=== PATIENT | male | born 1950 | race Caucasian/White ===

== ENCOUNTER 2022-02-02 08:02 | Inpatient (IN) | payer MEDICAID, MEDICARE ==
[~2022-02-02] VITALS: Ht 167.6 cm; Wt 67.1 kg
[2022-02-02 08:05] VITALS: BP_SYST 139
[2022-02-02] MEDS ORDERED: MORPHINE 4 MG INJ. 4 MG/ML VIAL IVP ONE (08:27)
[2022-02-02] MEDS ORDERED: NITROGLYCERIN 1 INCH (GM) OINT. TP ONE (08:27)
[2022-02-02] MEDS ORDERED: ALLO100T PO (09:17)
[2022-02-02] MEDS ORDERED: INDO-12 PO (09:17)
[2022-02-02] MEDS ORDERED: COLC0.6T67 PO (09:17)
[2022-02-02 09:31] LABS: BASOPHILS # (AUTO) 0.1 K/uL (0.0-0.2); EOSINOPHILS # (AUTO) 0.3 K/uL (0.0-0.4); EOSINOPHILS % (AUTO) 5.7 % (0.0-4.0); LYMPHOCYTES # (AUTO) 1.4 K/uL (1.0-5.5); LYMPHOCYTES % (AUTO) 25.2 % (20.5-51.5); MEAN CORPUSCULAR HEMOGLOBIN 31 pg (27-31); MEAN CORPUSCULAR HGB CONC 33 % (32-36); MEAN CORPUSCULAR VOLUME 93 fL (79.0-98.0); MONOCYTES # (AUTO) 0.2 K/uL (0.0-1.0); MONOCYTES % (AUTO) 2.8 % (1.7-9.3); NEUTROPHILS # (AUTO) 3.6 K/uL (1.8-7.7); NEUTROPHILS % (AUTO) 65.3 % (40.0-70.0); PLATELET COUNT (AUTO) 111 K/uL (130-430); WHITE BLOOD COUNT (AUTO) 5.5 K/uL (4.8-10.8)
[2022-02-02 09:34] LABS: ANION GAP 5 (5-15); CALCIUM 7.5 mg/dL (8.4-11.0); CHLORIDE 112 mmol/L (98-107); CREATININE 1.39 mg/dL (0.55-1.30); GLUCOSE 171 mg/dL (70-99); POTASSIUM 3.7 mmol/L (3.5-5.1); SODIUM SERUM 143 mmol/L (136-145); UREA NITROGEN, BLOOD 57 mg/dL (8-21)
[2022-02-02 09:39] LABS: GFR AFRICAN AMERICAN 65 mL/min (>90)
[2022-02-02 09:42] LABS: RED BLOOD CELL COUNT(AUTO) 1.33 MIL/uL (4.2-6.2)
[2022-02-02 09:43] LABS: HEMATOCRIT 12.4 % (36-54); HEMOGLOBIN 4.1 g/dL (14.0-18.0)
[2022-02-02 09:48] LABS: ALANINE AMINOTRANSFERASE 13 U/L (12-78); ALBUMIN 1.2 g/dL (3.4-4.8); ASPARTATE AMINOTRANSFERASE 19 U/L (10-37); TOTAL BILIRUBIN 0.3 mg/dL (0.0-1.0)
[2022-02-02 11:08] LABS: BILIRUBIN,URINE NEGATIVE (NEGATIVE); BLOOD, URINE 3+ (NEGATIVE); CLARITY/URINE CLOUDY (CLEAR); COLOR,URINE RED (YELLOW); GLUCOSE,URINE NEGATIVE (NEGATIVE); KETONES,URINE TRACE (NEGATIVE); LEUKOCYTE ESTERASE ,URINE TRACE (NEGATIVE); NITRITE, URINE NEGATIVE (NEGATIVE); PH,URINE 6.5 (5.0-8.0); PROTEIN URINE 3+ (NEGATIVE)
[2022-02-02 11:17] LABS: BACTERIA,URINE FEW /HPF (None Seen); RBC,URINE >100 /HPF (0-3)
[2022-02-02] MEDS ORDERED: cefTRIAXone 1 GM IVPB PREMIX 50 ML IV ONE (11:30)
[2022-02-02] MEDS ORDERED: LIP40 GT (12:09)
[2022-02-02] MEDS ORDERED: FAMO-268 GT (12:09)
[2022-02-02] MEDS ORDERED: CEFE2FRO IV (12:09)
[2022-02-02] MEDS ORDERED: FURO-149 GT (12:09)
[2022-02-02] MEDS ORDERED: APIX5TAB GT (12:09)
[2022-02-02] MEDS ORDERED: FLUT50BL INH (12:09)
[2022-02-02] MEDS ORDERED: CARV3.1246 GT (12:09)
[2022-02-02] MEDS ORDERED: MICA100V IV (12:09)
[2022-02-02] MEDS ORDERED: FERR220S15 GT (12:09)
[2022-02-02] MEDS ORDERED: ZOLPIDEM TARTRATE 5 MG TABLET PO PRN (12:15)
[2022-02-02] MEDS ORDERED: LORazepam 2 MG/ML VIAL IVP PRN (12:15)
[2022-02-02] MEDS ORDERED: MUPIROCIN 2% TOPICAL OINTMENT 22 GM NS PRN (12:15)
[2022-02-02] MEDS ORDERED: MAGNESIUM SULFATE 50 ML IV PRN (12:15)
[2022-02-02] MEDS ORDERED: ACETAMINOPHEN 325 MG TABLET PO PRN (12:15)
[2022-02-02] MEDS ORDERED: DOCUSATE SODIUM 100 MG CAPSULE PO PRN (12:15)
[2022-02-02] MEDS ORDERED: ONDANSETRON HCL 4 MG/2 ML VIAL IVP PRN (12:15)
[2022-02-02] MEDS ORDERED: POTASSIUM CHLORIDE 20 MEQ TAB.PRT.SR PO PRN (12:15)
[2022-02-02] MEDS ORDERED: cefTRIAXone 1 GM VIAL ONE (12:32)
[2022-02-02] MEDS ORDERED: cefTRIAXone 1 GM in D5W 50 ML IV ONE (13:00)
[2022-02-02] MEDS ORDERED: AZITHROMYCIN 250 MG TABLET PO ONE (13:30)
[2022-02-02 15:30] VITALS: BP_SYST 144
[2022-02-02] MEDS: D5NS 1,000 ML IV SCH (19:00)
[2022-02-02 22:38] LABS: TOTAL IRON BIND. CAPACITY 86 ug/dL (250-450)
[2022-02-03 00:37] VITALS: BP_SYST 138
[2022-02-03] MEDS: D5NS 1,000 ML IV SCH ×2 (01:30→13:51)
[2022-02-03 07:06] LABS: FOLATE (FOLIC ACID) 7.3 ng/mL (>3.0)
[2022-02-03 07:36] LABS: BASOPHILS % (AUTO) 0.8 % (0.0-2.0); EOSINOPHILS # (AUTO) 0.2 K/uL (0.0-0.4); EOSINOPHILS % (AUTO) 4.7 % (0.0-4.0); HEMATOCRIT 26.9 % (36-54); LYMPHOCYTES # (AUTO) 1.4 K/uL (1.0-5.5); LYMPHOCYTES % (AUTO) 30.3 % (20.5-51.5); MEAN CORPUSCULAR HEMOGLOBIN 30 pg (27-31); MEAN CORPUSCULAR HGB CONC 33 % (32-36); MEAN CORPUSCULAR VOLUME 91 fL (79.0-98.0); MONOCYTES # (AUTO) 0.1 K/uL (0.0-1.0); MONOCYTES % (AUTO) 2.8 % (1.7-9.3); NEUTROPHILS # (AUTO) 2.8 K/uL (1.8-7.7); NEUTROPHILS % (AUTO) 61.4 % (40.0-70.0); PLATELET COUNT (AUTO) 82 K/uL (130-430); RED BLOOD CELL COUNT(AUTO) 2.94 MIL/uL (4.2-6.2); RED CELL DISTRIBUTION WIDTH 16.1 % (9.0-15.0); WHITE BLOOD COUNT (AUTO) 4.5 K/uL (4.8-10.8)
[2022-02-03 08:00] LABS: CALCIUM 7.5 mg/dL (8.4-11.0); CREATININE 1.15 mg/dL (0.55-1.30); POTASSIUM 3.5 mmol/L (3.5-5.1)
[2022-02-03 08:14] LABS: ALBUMIN 1.2 g/dL (3.4-4.8); THYROID STIMULATING HORMONE 3.61 uIu/mL (0.36-3.74); TOTAL BILIRUBIN 0.4 mg/dL (0.0-1.0)
[2022-02-03 08:20] LABS: INR 1.2 (0.80-1.20); PROTHROMBIN TIME 12.7 SECS (9.5-12.5)
[2022-02-03 08:25] VITALS: BP_SYST 135
[2022-02-03 08:47] LABS: TOTAL IRON BIND. CAPACITY 233 ug/dL (250-450)
[2022-02-03] MEDS: AZITHROMYCIN 250 MG TABLET PO SCH (09:01)
[2022-02-03 12:00] VITALS: BP_SYST 137
[2022-02-03] MEDS: cefTRIAXone 1 GM in D5W 50 ML IV SCH (13:49)
[2022-02-03 16:00] VITALS: BP_SYST 136
[2022-02-03 21:13] VITALS: BP_SYST 139
[2022-02-03] MEDS: MORPHINE 2 MG/ML INJ. SYRINGE IVP PRN (21:43)
[2022-02-04 00:19] VITALS: BP_SYST 140
[2022-02-04 08:34] VITALS: BP_SYST 143
[2022-02-04] MEDS: D5NS 1,000 ML IV SCH ×2 (09:43→22:52)
[2022-02-04] MEDS: AZITHROMYCIN 250 MG TABLET PO SCH (09:46)
[2022-02-04] MEDS: MORPHINE 2 MG/ML INJ. SYRINGE IVP PRN (10:02)
[2022-02-04 12:01] LABS: BASOPHILS % (AUTO) 0.9 % (0.0-2.0); EOSINOPHILS # (AUTO) 0.2 K/uL (0.0-0.4); EOSINOPHILS % (AUTO) 6.5 % (0.0-4.0); HEMOGLOBIN 10.3 g/dL (14.0-18.0); LYMPHOCYTES # (AUTO) 1.3 K/uL (1.0-5.5); LYMPHOCYTES % (AUTO) 34.8 % (20.5-51.5); MEAN CORPUSCULAR HEMOGLOBIN 30 pg (27-31); MEAN CORPUSCULAR HGB CONC 32 % (32-36); MEAN CORPUSCULAR VOLUME 93 fL (79.0-98.0); MONOCYTES # (AUTO) 0.1 K/uL (0.0-1.0); NEUTROPHILS % (AUTO) 54.8 % (40.0-70.0); PLATELET COUNT (AUTO) 102 K/uL (130-430); RED BLOOD CELL COUNT(AUTO) 3.44 MIL/uL (4.2-6.2); RED CELL DISTRIBUTION WIDTH 16.7 % (9.0-15.0); WHITE BLOOD COUNT (AUTO) 3.7 K/uL (4.8-10.8)
[2022-02-04 12:09] LABS: CALCIUM 7.5 mg/dL (8.4-11.0); CREATININE 1.16 mg/dL (0.55-1.30); POTASSIUM 3.9 mmol/L (3.5-5.1)
[2022-02-04] MEDS: SOD FERRIC GLUC COMPLEX/SUC 125 MG in NS 100 ML IV SCH (12:12)
[2022-02-04 13:07] VITALS: BP_SYST 146
[2022-02-04] MEDS: cefTRIAXone 1 GM in D5W 50 ML IV SCH (13:32)
[2022-02-04 16:01] VITALS: BP_SYST 145
[2022-02-04 20:00] VITALS: BP_SYST 149
[2022-02-05 01:36] VITALS: BP_SYST 177
[2022-02-05] MEDS: MORPHINE 2 MG/ML INJ. SYRINGE IVP PRN ×3 (05:42→15:37)
[2022-02-05] MEDS: D5NS 1,000 ML IV SCH (05:48)
[2022-02-05 08:30] VITALS: BP_SYST 133
[2022-02-05 08:36] LABS: CREATININE 1.23 mg/dL (0.55-1.30)
[2022-02-05] MEDS: AZITHROMYCIN 250 MG TABLET PO SCH (09:05)
[2022-02-05 09:15] LABS: CALCIUM 6.6 mg/dL (8.4-11.0)
[2022-02-05 09:30] VITALS: BP_SYST 133
[2022-02-05 09:39] LABS: BASOPHILS # (AUTO) 0.1 K/uL (0.0-0.2); BASOPHILS % (AUTO) 1.4 % (0.0-2.0); EOSINOPHILS # (AUTO) 0.1 K/uL (0.0-0.4); EOSINOPHILS % (AUTO) 1.4 % (0.0-4.0); HEMATOCRIT 27.2 % (36-54); HEMOGLOBIN 8.9 g/dL (14.0-18.0); LYMPHOCYTES # (AUTO) 2.1 K/uL (1.0-5.5); LYMPHOCYTES % (AUTO) 45.5 % (20.5-51.5); MEAN CORPUSCULAR HEMOGLOBIN 30 pg (27-31); MEAN CORPUSCULAR HGB CONC 33 % (32-36); MEAN CORPUSCULAR VOLUME 92 fL (79.0-98.0); MONOCYTES # (AUTO) 0.2 K/uL (0.0-1.0); NEUTROPHILS # (AUTO) 2.2 K/uL (1.8-7.7); NEUTROPHILS % (AUTO) 47.7 % (40.0-70.0); PLATELET COUNT (AUTO) 93 K/uL (130-430); RED BLOOD CELL COUNT(AUTO) 2.95 MIL/uL (4.2-6.2); RED CELL DISTRIBUTION WIDTH 16.1 % (9.0-15.0); WHITE BLOOD COUNT (AUTO) 4.6 K/uL (4.8-10.8)
[2022-02-05] MEDS ORDERED: FERROUS GLUCONATE 324 MG TABLET PO ONE (11:00)
[2022-02-05] MEDS ORDERED: APIXABAN 2.5 MG TABLET PO ONE (11:00)
[2022-02-05] MEDS: SOD FERRIC GLUC COMPLEX/SUC 125 MG in NS 100 ML IV SCH (12:16)
[2022-02-05] MEDS: cefTRIAXone 1 GM in D5W 50 ML IV SCH (13:28)
[2022-02-05 16:38] VITALS: BP_SYST 142
[2022-02-05] MEDS ORDERED: APIXABAN 2.5 MG TABLET PO SCH (21:00)
[2022-02-05] MEDS ORDERED: FERROUS GLUCONATE 324 MG TABLET PO SCH (21:00)
== END 2022-02-05 17:24 | DRG 137 ==
LOC: SED 08:02 → STU 11:40
PROVIDERS: ADMIT General Practice; ATTEND General Practice
PROC: 30233N1 Transfusion of Nonautologous Red Blood Cells into Peripheral Vein, Percutaneous Approach (ICD-10-PCS; principal; 2022-02-02)
PROC: 30233N1 Transfusion of Nonautologous Red Blood Cells into Peripheral Vein, Percutaneous Approach (ICD-10-PCS; 2022-02-02)
DX: J69.0 Pneumonitis due to inhalation of food and vomit (principal); N17.0 Acute kidney failure with tubular necrosis; I50.43 Acute on chronic combined systolic (congestive) and diastolic (congestive) heart failure; E43 Unspecified severe protein-calorie malnutrition; J96.11 Chronic respiratory failure with hypoxia; I21.A1 Myocardial infarction type 2; Z93.0 Tracheostomy status; Z99.11 Dependence on respirator [ventilator] status; I11.0 Hypertensive heart disease with heart failure; N39.0 Urinary tract infection, site not specified; K92.2 Gastrointestinal hemorrhage, unspecified; M32.9 Systemic lupus erythematosus, unspecified; D62 Acute posthemorrhagic anemia; I48.0 Paroxysmal atrial fibrillation; E11.9 Type 2 diabetes mellitus without complications; Z20.822 Contact with and (suspected) exposure to COVID-19; R13.10 Dysphagia, unspecified; I20.9 Angina pectoris, unspecified; E83.51 Hypocalcemia; E78.5 Hyperlipidemia, unspecified; I25.5 Ischemic cardiomyopathy; I69.354 Hemiplegia and hemiparesis following cerebral infarction affecting left non-dominant side; Z74.01 Bed confinement status; Z79.01 Long term (current) use of anticoagulants; Z79.899 Other long term (current) drug therapy
CPT/HCPCS: 36415; 36430; 71045; 76770; 80048; 80053; 80061; 81000; 82272; 82607; 82728; 82746; 83540; 83550; 83735; 83880; 84443; 84484; 85025; 85610-TC; 86886; 86900; 86901; 86920; 87040; 87081; 87086; 93005; 93306; 94760; 96365; 96375; 99291; G0378; J0696; J2270; J2916; J7060; P9021; Q0144

== ENCOUNTER 2022-02-05 22:56 | Inpatient (IN) | payer MEDICAID, MEDICARE ==
[~2022-02-05] VITALS: Ht 172.7 cm; Wt 76.7 kg
[2022-02-05 22:56] VITALS: BP_SYST 134
[~2022-02-05 22:56] MED LIST: APIX5TAB GT; CARV3.1246 GT; CEFE2FRO IV; FAMO-268 GT; FERR220S15 GT; FLUT50BL INH; FURO-149 GT; LIP40 GT; MICA100V IV
--- NOTE | 2022-02-05 23:13 | NUR ---
Placed in room 03 . Placed on region manager, blood pressure machine and pulse oximeter. To gown for exam. Side rails up. Report given to SIMON STOREY
--- NOTE | 2022-02-05 23:22 | NUR ---
I HAVEN 'T RECIEVED REPORT BUT I READ THE TRIAGE REPORT, PT IS HERE FOR CP. I WILL GO SEE THE PT NOW
[2022-02-06 01:25] LABS: HEMOGLOBIN 9.5 g/dL (14.0-18.0); MEAN CORPUSCULAR VOLUME 91 fL (79.0-98.0)
[2022-02-06 01:29] LABS: EOSINOPHILS # (AUTO) 0.3 K/uL (0.0-0.4); EOSINOPHILS % (AUTO) 6.5 % (0.0-4.0); HEMATOCRIT 28.7 % (36-54); LYMPHOCYTES # (AUTO) 1.6 K/uL (1.0-5.5); LYMPHOCYTES % (AUTO) 36.7 % (20.5-51.5); MEAN CORPUSCULAR HEMOGLOBIN 30 pg (27-31); MEAN CORPUSCULAR HGB CONC 33 % (32-36); MONOCYTES # (AUTO) 0.3 K/uL (0.0-1.0); NEUTROPHILS # (AUTO) 2.1 K/uL (1.8-7.7); NEUTROPHILS % (AUTO) 49.8 % (40.0-70.0); PLATELET COUNT (AUTO) 115 K/uL (130-430); RED BLOOD CELL COUNT(AUTO) 3.15 MIL/uL (4.2-6.2); RED CELL DISTRIBUTION WIDTH 16.3 % (9.0-15.0); WHITE BLOOD COUNT (AUTO) 4.3 K/uL (4.8-10.8)
--- NOTE | 2022-02-06 01:30 | NUR ---
I STARTED A IV LAC 18G. AND LAB DRAWN BLD FROM THE RIGHT ARM. PT SUCTIONED AND SLIGHT BLD TINGED SPUTUM NOTED MODERATE AMOUNT. TRACH DRSG CHANGED D/T BLD SPUTUM SOAKING DRSG. NO OTHER RESP ISSUES AND SATURATIONS APPROP.. CARE RESUMED
[2022-02-06 01:52] LABS: CALCIUM 7.8 mg/dL (8.4-11.0); CREATININE 1.6 mg/dL (0.55-1.30); POTASSIUM 4.5 mmol/L (3.5-5.1); TOTAL BILIRUBIN 0.1 mg/dL (0.0-1.0)
[2022-02-06 01:53] LABS: ALBUMIN 1.1 g/dL (3.4-4.8)
--- NOTE | 2022-02-06 01:57 | NUR ---
CRITICAL TROPONIN= 181.4, DR. HAWKINS AWARE ADN NOTIFIED
[2022-02-06] MEDS ORDERED: ASPIRIN 325 MG TABLET PO ONE (02:15)
[2022-02-06] MEDS ORDERED: FUROSEMIDE 40 MG/4 ML VIAL IVP ONE (02:15)
[2022-02-06] MEDS ORDERED: NITROGLYCERIN 1 INCH (GM) OINT. TP ONE (02:15)
--- NOTE | 2022-02-06 02:27 | NUR ---
DEL RIO CATH INSERTED AND UA OBTAINED AND SENT TO LAB
[2022-02-06 03:37] LABS: BILIRUBIN,URINE NEGATIVE (NEGATIVE); BLOOD, URINE 3+ (NEGATIVE); CLARITY/URINE CLOUDY (CLEAR); COLOR,URINE ORANGE (YELLOW); GLUCOSE,URINE NEGATIVE (NEGATIVE); KETONES,URINE NEGATIVE (NEGATIVE); LEUKOCYTE ESTERASE ,URINE NEGATIVE (NEGATIVE); NITRITE, URINE NEGATIVE (NEGATIVE); PROTEIN URINE 3+ (NEGATIVE)
[2022-02-06 04:01] LABS: BACTERIA,URINE FEW /HPF (None Seen); RBC,URINE 20-50 /HPF (0-3)
[2022-02-06 04:02] LABS: COARSE GRANULAR CASTS,URINE 0-10 /LPF (None Seen)
--- NOTE | 2022-02-06 04:06 | NUR ---
CRITICAL TROPONIN = [address] REPEAT E[address] DONE NOW. DR. HAWKINS AWARE OF CRITICAL VALUE
[2022-02-06] MEDS ORDERED: HEPARIN 25,000 UNITS/D5W 250ML 250 ML IV ONE (04:15)
[2022-02-06] MEDS ORDERED: HEPARIN SODIUM,PORCINE 5,000 UNITS/ML VIAL IVP ONE (04:15)
--- NOTE | 2022-02-06 04:35 | NUR ---
ER DOC ORDERED HEPARIN BUT HE ADVISED ME TO HOLD OFF ON GIVING PT ANY HEPARIN UNTIL HE DISCUSSES WITH ADMITTING DRTrevon UPON HEPARIN ADMINISTRATION. CARE RESUMED
[2022-02-06] MEDS ORDERED: cefTRIAXone 1 GM IVPB PREMIX 50 ML IV SCH (06:30)
[2022-02-06] MEDS ORDERED: LevALBUTEROL HCL 1.25 MG/0.5 ML *CONC.* VIAL.NEB (XOPENEX CONC.) INH ONE ×2 (06:30→06:49)
[2022-02-06] MEDS ORDERED: ALBUTEROL MDI INHALATION 8 GM INH INH PRN (06:45)
[2022-02-06] MEDS ORDERED: ACETAMINOPHEN 650 MG/20.3 ML UDC GT PRN (06:45)
--- NOTE | 2022-02-06 07:00 | NUR ---
PT AWAKE ALERT NON VERBAL. PT HAS A TRACH WITH O2 AND HUMIDIFIER RUNNING AT 5 LITERS. PT UNABLE TO MOVE LEFT SIDE OF BODY. PT IS ABLE TO MOVE RIGHT SIDE ARM AND LEG. PT IS BEDBOUND. 18 GAUGE IV NOTED ON LEFT AC SKIN INTACT NO INFILTRATION. GTUBE PRESENT, DEL RIO INTACT NO SIGNS OF INFECTION NOTED. PT CONNECTED TO SALES DEPARTMENT SUPERVISOR WITH AN ELEVATED HR OF 112. BP ELEVATED 166/93. O2 SAT. 96% TEMP. 104.2 BED LOWEST POSITION SAFETY CHECKS DONE. RAILS UP.
--- NOTE | 2022-02-06 07:35 | NUR ---
Admit bed requested Patient will be admitted to care of . Admitted to Tele unit. Diagnosis Pneumonia and CHF Inpatient (Yes or No) Yes Observation (Yes or No) No Orientation concerns or request close to nursing station (Yes or No) No Covid Status Neg On vent or bipap No Isolation requirements No Needs a sitter No From Home (Yes or if No enter name of facility) [place] Requires Dialysis (Yes or No) No Med Rec Completed (Yes of No) Yes
--- NOTE | 2022-02-06 07:41 | NUR ---
Covid swab done and sent to lab.
[2022-02-06] MEDS: CARVEDILOL 6.25 MG TABLET (COREG) GT SCH ×2 (09:00→22:01)
[2022-02-06] MEDS: FERROUS SULFATE 300 MG/5 ML UDC GT SCH (09:00)
[2022-02-06] MEDS ORDERED: GLUCOSE (DEXTROSE) ORAL GEL -Adults PO PRN (09:00)
[2022-02-06] MEDS ORDERED: DEXTROSE 50%-WATER 50 ML DISP.SYRIN IVP PRN (09:00)
[2022-02-06] MEDS ORDERED: FUROSEMIDE 20 MG TABLET GT SCH (09:00)
[2022-02-06] MEDS ORDERED: D5W 1,000 ML IV PRN (09:00)
[2022-02-06] MEDS ORDERED: FAMOTIDINE 20 MG TABLET GT ONE (09:00)
--- NOTE | 2022-02-06 09:37 | NUR ---
Paged Dr. Molina about pt's BP running at 199/88 and temp being at 104.1. Waiting for call back.,
--- NOTE | 2022-02-06 09:41 | NUR ---
Dr. Sorto at bedside examining pt.
[2022-02-06] MEDS ORDERED: hydrALAZINE HCL 20 MG/ML VIAL IVP PRN (10:00)
--- NOTE | 2022-02-06 10:01 | NUR ---
Dr. Molina called back and gave orders. Orders have been placed.
[2022-02-06 10:03] VITALS: BP_SYST 166
--- NOTE | 2022-02-06 10:08 | NUR ---
RT NOTES 1008 Pt on trach collar CA 5L/28% FIO2. Pt saturating 96%. will continue to monitor pt. Changed Inner Cannula.
[2022-02-06] MEDS ORDERED: hydrALAZINE HCL 20 MG/ML VIAL ONE (10:11)
--- NOTE | 2022-02-06 10:16 | NUR ---
Cooling measures initaited. Tylenol provided to pt 650mg and Hydralazine 10mg IV push given as well. Dr. Molina made aware.
[2022-02-06] MEDS: CEFEPIME 2 GM in D5W 100 ML IV SCH ×2 (10:53→23:14)
--- NOTE | 2022-02-06 11:04 | NUR ---
VS BP 146/80 TEMP 100.1 PT IN BED RESTING WITH NO SIGNS OF DISTRESS
[2022-02-06] MEDS: APIXABAN 2.5 MG TABLET GT SCH ×2 (11:09→21:58)
[2022-02-06] MEDS ORDERED: AZITHROMYCIN 500 MG in NS 250 ML IV ONE (12:00)
[2022-02-06] MEDS ORDERED: ALBUTEROL MDI INHALATION 8 GM INH INH SCH (12:00)
[2022-02-06] MEDS: INSULIN REGULAR, HUMAN 100 UNITS/ML, 10 ML VIAL (humuLIN R) SUBCUT SCH ×2 (12:00→17:08)
--- NOTE | 2022-02-06 13:10 | NUR ---
Patient will be admitted to care of Dr. Molina. Admitted to Tele unit. Will go to room 112B. Belongings list completed. Complete and up to date summary report printed. SBAR report to be given at bedside with opportunity for questions.
--- NOTE | 2022-02-06 13:45 | NUR ---
ADMISSION NOTE Received report from Veronica MONTES form ER. Received pt AAOx3, non-verbal, able to gesture. Pt placed on telemetry with pulse ox. Pt with no s/s resp distress, no s/s pain or discomfort, pt afebrile. RT called and placed pt on O2 5L via mask to trach with closed suction set-up. Sandra draining to gravity with yellow urine. Pt repositioned in bed with pillow support and heels off-loaded for skin care. Both hands elevated on pillows due to edema. Pt placed in clean gown, given quick wash up to chest and face area. HOB elevated for aspiration precautions. Glucerna 1.5 bottle hung and now infusing well at ordered rate of 50 ml/hr with no residual noted. Zithromax IVPB infusing well to LAC at ordered rate from ER. Side rails up x3, bed alarm on and room across from nursing station for safety. Call light within reach.
[2022-02-06 13:50] VITALS: BP_SYST 143
[2022-02-06] MEDS: ALBUTEROL SULFATE 0.083% 2.5 MG/3 ML VIAL.NEB INH SCH ×2 (14:19→20:33)
--- NOTE | 2022-02-06 15:02 | NUR ---
CONSULTATION: REASON FOR CONSULT: PNEUMONIA CONSULTING PHYSICIAN: CAL ORDERED BY: SHARMIN STOVALL IS ALREADY IN THE HOSPITAL AND IS AWARE OF THE CONSULT [phone]
[2022-02-06] MEDS: MICAFUNGIN SODIUM 100 MG in NS 100 ML IV SCH (15:11)
--- NOTE | 2022-02-06 15:33 | NUR ---
CONSULTATION PAGED REASON FOR CONSULTATION:RESP FAILURE WAS CONSULT CALED?Y PERSON WHO WAS NOTIFIED:AURE CONSULTING PHYSICIAN:LEYLA MCCARTHY DIRECTOR OF COLLECTIONS SPECIALTY:PULMONARY DIRECTOR OF COLLECTIONS PHONE NUMBER:[phone] REQUESTING PHYSICIAN:JUAN ANTONIO RAPHAEL
[2022-02-06] MEDS: methylPREDNISolone SOD SUCC/PF 62.5 MG/ML VIAL IVP SCH ×2 (17:04→23:14)
[2022-02-06 17:05] VITALS: BP_SYST 142
[2022-02-06] MEDS: 0.45% NACL 1,000 ML IV SCH (17:06)
--- NOTE | 2022-02-06 19:15 | NUR ---
CLOSING NOTE Pt in bed visiting with his family, no s/s resp distress, no c/o pain or discomfort. Pt's and family at bedside and updated on pt's condition and medications. Aspiration, skin and safety precautions remain in place. Endorsed to pelts skinner nurse. Call light within reach.
[2022-02-06 20:00] VITALS: BP_SYST 117
[2022-02-06] MEDS: ATORVASTATIN 20 MG TABLET GT SCH (21:56)
[2022-02-06] MEDS: FLUTICASONE PROPIONATE 50 mCg/SPRAY 16 GM NS SCH (22:00)
--- NOTE | 2022-02-07 00:09 | NUR ---
CRITICAL LAB: tech from Laboratory called with critical lab value of a troponin value of 221. Medical record number and patient name verified. Read back of values done. Dr. Hilliard was paged waiting on a call back. No orders given at this time.
[2022-02-07 00:19] VITALS: BP_SYST 155
[2022-02-07] MEDS: ALBUTEROL SULFATE 0.083% 2.5 MG/3 ML VIAL.NEB INH SCH ×4 (01:47→20:23)
[2022-02-07] MEDS: INSULIN REGULAR, HUMAN 100 UNITS/ML, 10 ML VIAL (humuLIN R) SUBCUT SCH ×4 (02:12→17:10)
[2022-02-07] MEDS: 0.45% NACL 1,000 ML IV SCH ×2 (05:02→15:56)
[2022-02-07 07:00] LABS: BASOPHILS % (AUTO) 0.3 % (0.0-2.0); HEMATOCRIT 26.5 % (36-54); HEMOGLOBIN 8.8 g/dL (14.0-18.0); LYMPHOCYTES # (AUTO) 1.5 K/uL (1.0-5.5); LYMPHOCYTES % (AUTO) 33.2 % (20.5-51.5); MEAN CORPUSCULAR HEMOGLOBIN 30 pg (27-31); MEAN CORPUSCULAR HGB CONC 33 % (32-36); MEAN CORPUSCULAR VOLUME 91 fL (79.0-98.0); MONOCYTES # (AUTO) 0.1 K/uL (0.0-1.0); NEUTROPHILS # (AUTO) 2.8 K/uL (1.8-7.7); NEUTROPHILS % (AUTO) 63.5 % (40.0-70.0); PLATELET COUNT (AUTO) 126 K/uL (130-430); RED CELL DISTRIBUTION WIDTH 16.6 % (9.0-15.0); WHITE BLOOD COUNT (AUTO) 4.5 K/uL (4.8-10.8)
--- NOTE | 2022-02-07 07:52 | NUR ---
0745 CHANGED COOL AEROSOL WATER BOTTLE. PT TOLERATED. Addendum: 02/07/22 at 0752 by Dorcas Montoya RT Amended: Links added.
[2022-02-07 08:01] VITALS: BP_SYST 148
[2022-02-07 08:35] LABS: CALCIUM 7.1 mg/dL (8.4-11.0); CREATININE 1.74 mg/dL (0.55-1.30)
[2022-02-07] MEDS: FERROUS SULFATE 300 MG/5 ML UDC GT SCH (08:55)
[2022-02-07] MEDS: AZITHROMYCIN 250 MG TABLET PO SCH (08:56)
[2022-02-07] MEDS: FUROSEMIDE 20 MG/2 ML VIAL IVP SCH ×2 (08:56→22:10)
[2022-02-07] MEDS: FAMOTIDINE 20 MG TABLET GT SCH (08:56)
[2022-02-07] MEDS: CARVEDILOL 6.25 MG TABLET (COREG) GT SCH ×2 (08:58→21:55)
[2022-02-07] MEDS: APIXABAN 2.5 MG TABLET GT SCH ×2 (09:02→21:55)
[2022-02-07] MEDS: methylPREDNISolone SOD SUCC/PF 62.5 MG/ML VIAL IVP SCH ×3 (09:03→23:38)
[2022-02-07] MEDS: CEFEPIME 2 GM in D5W 100 ML IV SCH ×2 (11:47→22:20)
[2022-02-07] MEDS: MICAFUNGIN SODIUM 100 MG in NS 100 ML IV SCH (12:59)
--- NOTE | 2022-02-07 14:28 | NUR ---
Dietitian Recommendations Continue Glucerna 1.5 @ 50 mL/hr, free water flush per Nolberto YANCEY. Provides (w/ Nolberto): 1960 kcals/day and 104 g protein/day. Meets: 86% of lower kcal needs, 91% of upper protein needs. Please refer to nutrition assessment for details. Signed: 02/07/22 at 1429 by Yessenia OSHEA <Co-Signature Required> Co-Signed: 02/07/22 at [address] Addendum: 02/07/22 at 1429 by Yessenia OSHEA Amended: Links added.
[2022-02-07] MEDS: ACETAMINOPHEN 650 MG/20.3 ML UDC GT PRN ×2 (15:44→21:51)
--- NOTE | 2022-02-07 16:06 | NUR ---
INFORMED RN ASHWINI THAT THE PATIENT IS OFF THE LEADS
--- NOTE | 2022-02-07 17:50 | NUR ---
1730 TRACH CARE TOPICALLY DONE DUE TO FRESH TRACH, PT TOLERATED WELL. Addendum: 02/07/22 at 1750 by Dorcas Montoya RT Amended: Links added.
--- NOTE | 2022-02-07 19:40 | NUR ---
OPENING NOTE PT IS SEMI FOWLERS IN BED WITH FAMILY BEDSIDE. NO APPARENT DISTRESS NOTED AT THIS TIME. PT IS ON 5 L MASK OVER TRACH SATING 99%. DEL RIO IS DRAINING TO GRAVITY. IV FLUIDS AND TUBE FEEDING RUNNING ORDERED. BED IS IN LOWEST POSITION WITH FALL AND SAFETY PRECAUTIONS IN PLACE. CALL LIGHT IS WITHIN REACH
[2022-02-07 20:00] VITALS: BP_SYST 138
[2022-02-07] MEDS: ATORVASTATIN 20 MG TABLET GT SCH (21:51)
[2022-02-07] MEDS: FLUTICASONE PROPIONATE 50 mCg/SPRAY 16 GM NS SCH (21:56)
--- NOTE | 2022-02-07 22:00 | NUR ---
PT CONDITION LEFT ARM EDEMATOUS WITH 2+ PITTING, FLUIDS RUNNING IN L AC 18 G. RIGHT UPPER ARM IS EDEMATOUS WITH 2+ PITTING EDEMA, R WRIST IV HAS GOOD BLOOD RETURN. MOVING THE IV FLUIDS TO RIGHT WRIST IV SKIN TEAR NOTED ON LEFT AC ON OUTER PERIMETER OF TRANSPARENT DRESSING OF LAC IV
[2022-02-08] VITALS (12 sets, daily range): BP systolic 130–150
[2022-02-08] MEDS: INSULIN REGULAR, HUMAN 100 UNITS/ML, 10 ML VIAL (humuLIN R) SUBCUT SCH ×4 (00:43→17:50)
[2022-02-08] MEDS ORDERED: FUROSEMIDE 20 MG/2 ML VIAL IVP ONE (01:45)
--- NOTE | 2022-02-08 01:53 | NUR ---
DR ACE CALLED CALLED AND SPOKE WITH DR ACE ABOUT PTS CHANGE IN CONDITION. PT BECAME RESTLESS WITH AN AUDIBLE WHEEZE. DR ORDERED A ONE TIME ORDER OF 20 MG IVP OF LASIX, AND TO DECREASE IVF TO 40 ML/HR AND TO DECREASE TUBE FEEDING TRO 25 ML/ HR
[2022-02-08] MEDS: ALBUTEROL SULFATE 0.083% 2.5 MG/3 ML VIAL.NEB INH SCH ×4 (02:05→19:58)
--- NOTE | 2022-02-08 04:15 | NUR ---
PT CONDITION PT BECAME AGITATED AND HAD AN AUDIBLE WHEEZE. CALLED RT TO ADMINISTER A BREATHING TX AND SUCTION. PT COMMIONICATED HE WAS DIRTY AND NEEDED TO BE CLEANED, MEMBERSHIP DIRECTOR CAME IN TO ASSIST. AFTER CLEANING AND REPOSITIONING PTS AUDIBLE WHEEZE DIMINISHED. LUNG SOUNDS STILL HAVE BILAT WHEEZE WILL ENDORSE TO DAY SHIFT THE NEED FOR MEDICATION FOR RESTLESSNESS AND POSSIBLE TRANSFER TO ICU.
[2022-02-08] MEDS: ALBUTEROL SULFATE 0.083% 2.5 MG/3 ML VIAL.NEB INH PRN ×2 (04:49→11:37)
--- NOTE | 2022-02-08 06:57 | NUR ---
CLOSING NOTE PT IS SEMIFOWLERS WITH EYES CLOSED, PT IS STILL AGITATED AND FLAILING HIS RIGHT ARM UP. PTS LUNG SOUNDS STILL HAVE A WHEEZE WITH A RR OF 30. PAGED RT AT 0645 TO SUCTION PT. BED IS IN LOWEST POSITION WITH FALL AND SAFETY PRECAUTIONS IN PLACE. CALL LIGHT IS WITHIN REACH. IV FLUIDS AND TUBE FEEDING RUNNING ORDERED
[2022-02-08] MEDS: methylPREDNISolone SOD SUCC/PF 62.5 MG/ML VIAL IVP SCH ×2 (08:45→17:46)
[2022-02-08] MEDS: FAMOTIDINE 20 MG TABLET GT SCH (08:46)
[2022-02-08] MEDS: APIXABAN 2.5 MG TABLET GT SCH ×2 (08:46→20:22)
[2022-02-08] MEDS: AZITHROMYCIN 250 MG TABLET PO SCH (08:47)
[2022-02-08] MEDS: FUROSEMIDE 20 MG/2 ML VIAL IVP SCH ×2 (08:47→21:00)
[2022-02-08] MEDS: FERROUS SULFATE 300 MG/5 ML UDC GT SCH (08:47)
[2022-02-08] MEDS: CARVEDILOL 6.25 MG TABLET (COREG) GT SCH ×2 (09:00→20:20)
[2022-02-08] MEDS ORDERED: METHYLPREDNISOLONE SOD SUCC 40 MG/ML VIAL IVP ONE (11:00)
[2022-02-08] MEDS: CEFEPIME 2 GM in D5W 100 ML IV SCH ×2 (11:16→23:59)
--- NOTE | 2022-02-08 11:25 | NUR ---
Pt Oxygenation dropped down to 92%. Sweating profusely.Pt is breathing fast. Pt is using accessory muscles while breathing. When asked why he was breathing so hard, pt shrugged his shoulders. made aware of change in pt's condition. New orders entered. STAT ABG and Chest xray. Pt is on vent. ABGs to be repeated an hour after vent is placed on the patient. Report new results to Dr. Alicea. Will continue to monitor
--- NOTE | 2022-02-08 11:28 | NUR ---
CONSULT SURGERY BLEEDING TRACHEOSTOMY DR BARROSO,TUNDE [phone] DR BARROSO IS AWARE OF CONSULT
[2022-02-08] MEDS: MICAFUNGIN SODIUM 100 MG in NS 100 ML IV SCH (13:00)
[2022-02-08 13:30] LABS: BASOPHILS % (AUTO) 0.1 % (0.0-2.0); HEMATOCRIT 25.7 % (36-54); HEMOGLOBIN 8.4 g/dL (14.0-18.0); LYMPHOCYTES # (AUTO) 1.1 K/uL (1.0-5.5); LYMPHOCYTES % (AUTO) 19.4 % (20.5-51.5); MEAN CORPUSCULAR HEMOGLOBIN 30 pg (27-31); MEAN CORPUSCULAR HGB CONC 33 % (32-36); MEAN CORPUSCULAR VOLUME 92 fL (79.0-98.0); MONOCYTES # (AUTO) 0.2 K/uL (0.0-1.0); MONOCYTES % (AUTO) 4.4 % (1.7-9.3); NEUTROPHILS # (AUTO) 4.2 K/uL (1.8-7.7); NEUTROPHILS % (AUTO) 76.1 % (40.0-70.0); PLATELET COUNT (AUTO) 195 K/uL (130-430); WHITE BLOOD COUNT (AUTO) 5.6 K/uL (4.8-10.8)
[2022-02-08 13:42] LABS: ALBUMIN 1.2 g/dL (3.4-4.8); CALCIUM 7.3 mg/dL (8.4-11.0); CREATININE 2.28 mg/dL (0.55-1.30); TOTAL BILIRUBIN 0.6 mg/dL (0.0-1.0)
[2022-02-08] MEDS ORDERED: SODIUM BICARBONATE 8.4% JECT 50 MEQ/50 ML SYRINGE IVP ONE (14:45)
[2022-02-08] MEDS: LORazepam 2 MG/ML VIAL IVP PRN (15:15)
--- NOTE | 2022-02-08 15:20 | NUR ---
Pt is struggling to breath while on the ventilator. Saturation is 92% with HOB at 30. Pt is sweating profusely. MD notified. NEw orders to administer 1 amp of bicarb and ativan 1 mg q6prn. Will transfer the patient to ICU as soon as a bed is available. Will continue to monitor
--- NOTE | 2022-02-08 15:30 | NUR ---
RT NOTE: 1530 Patient situated in ICU 3, tranported with vent. Trach is patent and secure during transport. No issues. SpO2 is at 97%, HR 88, and RR 40. Patient is complaining of pain. INTEGRATION ENGINEER at the bedside at this time. Will continue to monitor pt. Addendum: 02/08/22 at 1549 by Slime Greene RT Amended: Links added.
--- NOTE | 2022-02-08 15:40 | NUR ---
Patient received Received patient from Tele floor and placed in bed 3. Patient is resting in bed with tachypneic breathing. RT is at bedside assessing and assisting with patient transfer. Report given to Juan Diego at bedside from Telemetry nurse. All care has been assumed by the ICU.
[2022-02-08] MEDS: 0.45% NACL 1,000 ML IV SCH (17:45)
[2022-02-08 19:04] LABS: INR 1.3 (0.80-1.20); PROTHROMBIN TIME 12.9 SECS (9.5-12.5)
--- NOTE | 2022-02-08 19:30 | NUR ---
Andre Espinosa RN, received report from day RN. Assuming care now.
[2022-02-08] MEDS: ATORVASTATIN 20 MG TABLET GT SCH (20:18)
[2022-02-08] MEDS: FLUTICASONE PROPIONATE 50 mCg/SPRAY 16 GM NS SCH (21:00)
[2022-02-09] VITALS (36 sets, daily range): BP systolic 108–157
[2022-02-09] MEDS: methylPREDNISolone SOD SUCC/PF 62.5 MG/ML VIAL IVP SCH ×4 (00:46→18:47)
[2022-02-09] MEDS: INSULIN REGULAR, HUMAN 100 UNITS/ML, 10 ML VIAL (humuLIN R) SUBCUT SCH ×4 (00:52→18:49)
[2022-02-09] MEDS: ALBUTEROL SULFATE 0.083% 2.5 MG/3 ML VIAL.NEB INH SCH ×4 (01:08→19:30)
[2022-02-09] MEDS: ACETAMINOPHEN 650 MG/20.3 ML UDC GT PRN (01:27)
[2022-02-09] MEDS: LORazepam 2 MG/ML VIAL IVP PRN ×4 (03:58→22:05)
--- NOTE | 2022-02-09 03:58 | NUR ---
Patient anxious visibly, unable to make needs known at times and gesturing to get out of bed. Waving arm around in bed aimlessly. Ativan given PRN IV. Will continue to monitor.
[2022-02-09 06:40] LABS: ALBUMIN 0.9 g/dL (3.4-4.8); CALCIUM 7.1 mg/dL (8.4-11.0); CREATININE 2.46 mg/dL (0.55-1.30); POTASSIUM 3.6 mmol/L (3.5-5.1); TOTAL BILIRUBIN 0.6 mg/dL (0.0-1.0)
[2022-02-09 07:38] LABS: BASOPHILS % (AUTO) 0.1 % (0.0-2.0); LYMPHOCYTES # (AUTO) 0.7 K/uL (1.0-5.5); LYMPHOCYTES % (AUTO) 17.8 % (20.5-51.5); MEAN CORPUSCULAR HEMOGLOBIN 31 pg (27-31); MEAN CORPUSCULAR HGB CONC 33 % (32-36); MEAN CORPUSCULAR VOLUME 93 fL (79.0-98.0); MONOCYTES # (AUTO) 0.2 K/uL (0.0-1.0); MONOCYTES % (AUTO) 6.4 % (1.7-9.3); NEUTROPHILS # (AUTO) 2.9 K/uL (1.8-7.7); NEUTROPHILS % (AUTO) 75.7 % (40.0-70.0); PLATELET COUNT (AUTO) 149 K/uL (130-430); RED BLOOD CELL COUNT(AUTO) 2.17 MIL/uL (4.2-6.2); RED CELL DISTRIBUTION WIDTH 16.5 % (9.0-15.0); WHITE BLOOD COUNT (AUTO) 3.9 K/uL (4.8-10.8)
[2022-02-09] MEDS: CARVEDILOL 6.25 MG TABLET (COREG) GT SCH ×2 (08:19→20:55)
[2022-02-09] MEDS: AZITHROMYCIN 250 MG TABLET PO SCH (08:19)
[2022-02-09] MEDS: FAMOTIDINE 20 MG TABLET GT SCH (08:19)
[2022-02-09] MEDS: FERROUS SULFATE 300 MG/5 ML UDC GT SCH (08:20)
[2022-02-09] MEDS: FUROSEMIDE 20 MG/2 ML VIAL IVP SCH (08:20)
[2022-02-09] MEDS: APIXABAN 2.5 MG TABLET GT SCH (08:22)
[2022-02-09 09:27] LABS: HEMATOCRIT 20.1 % (36-54); HEMOGLOBIN 6.7 g/dL (14.0-18.0)
[2022-02-09] MEDS: CEFEPIME 2 GM in D5W 100 ML IV SCH ×2 (12:50→20:55)
--- NOTE | 2022-02-09 15:25 | NUR ---
Nutrition F/U Admitting Diagnosis PNA, CHF Reviewed Pertinent Medical/Surgical Hx Medical Record RN Medical History Comment: Per EMR review, PMH includes HLD, HTN, DM, chronic respiratory failure, CVA, encephalopathy, previous AK, CHF, s/p trach and PEG. SARS-CoV-2 Ag (Rapid) Negative 02/06. Subjective Information Per EMR review, pt on mechanical vent. Abdomen is soft, non-distended w/ active BS. Kilo score 12, Left AC skin tear noted, 3+ pitting edema noted on L arm and 2+ pitting edema noted on R arm. Per ICU rounds, pt transferred to ICU yesterday d/t difficulty ventilating. Per RN, pts MD would like to increase GT rate. DI called ICU and spoke w/ pt's primary RN and relayed goal rate for TF as well as Nolberto BID. Pt is not yet meeting nutritional needs. Current Diet Order/Nutrition Support Glucerna 1.5 @25 mL/hr, free water flush 0mL via GT x1 day Patient/Significant Other Unable To Verbalize Education Provided Not Indicated Pertinent Medications Lasix, lipitor, SSI, FeSO4, pepcid Pertinent Labs BUN 93 H, Cr 2.46 H, GFR 28 L, BG 297 H, POC BG 241 H, Alb 0.9 L, H/H 6.7 L/20.1 L Height (Feet) 5 feet Height (Inches) 8.00 inches Weight (Pounds) 168 pounds no changes since 02/06 Patient Weight 76.204 kg Body Mass Index 25.54 kg/m2 %IBW 109 [place]/Adjusted Body Weight 154#/70 kg Recent Weight Change unable to verify Weight Status Appropriate Food Allergies unable to verify Usual Diet At Home Glucerna 1.5 @ 50 mL/hr (*NEW) Estimated Energy Expenditure (kcals/day) 1842 kcals/day ([id number], Ve 15.6, Tmax 36.7 C) (*ongoing) Estimated Protein Required (g/day) 91-114 g/day (1.2-1.5 g/kg CBW d/t respiratory failure, CHF) (*ongoing) Estimated Fluid Required (l/day) Per MD d/t CHF Problem/Etiology/Signs/Symptoms Increased nutritional needs R/T physiological demands AEB estimated nutritional requirements for acute critical illness and wound healing. (*ongoing) Expected Outcomes/Goals Monitor tube feeding tolerance and intakes w/ goal of pt meeting more than 90% of estimtaed nutritional needs, labs trending WNL, normal GI function, skin integrity/wt maintenance. Dietitian Recommendations Glucerna 1.5 @ 50 mL/hr, free water flush per MD, Nolberto BID. Provides (w/ Nolberto): 1960 kcals/day, 104 g protein/day, and 911 ml free water/day. Meets: 106% of lower kcal needs, 91% of upper protein needs. Follow Up High Risk: F/U in 2-3 days Follow Up By Feb 13, 2022 Signed: 02/09/22 at 1532 by Yessenia OSHEA <Co-Signature Required> Co-Signed: 02/09/22 at [address]
--- NOTE | 2022-02-09 15:32 | NUR ---
Dietitian Recommendations Glucerna 1.5 @ 50 mL/hr, free water flush per Nolberto YANCEY. Provides (w/ Nolberto): 1960 kcals/day, 104 g protein/day, and 911 ml free water/day. Meets: 106% of lower kcal needs, 91% of upper protein needs. LP, RD Please refer to Nutrition F/U for details. Signed: 02/09/22 at 1533 by Yessenia OSHEA <Co-Signature Required> Co-Signed: 02/09/22 at [address]
[2022-02-09] MEDS: 0.45% NACL 1,000 ML IV SCH (16:09)
--- NOTE | 2022-02-09 20:08 | NUR ---
Received report on pt. Pt is stable and currently receiving his 1st unit of blood, pending the second unit. Vitals are stable and pt is resting in bed. Tube feeding running at 50 ml/hr as well as fluids. Will continue to monitor. Isela Wilkins RN
[2022-02-09] MEDS: ATORVASTATIN 20 MG TABLET GT SCH (20:55)
[2022-02-09] MEDS: FLUTICASONE PROPIONATE 50 mCg/SPRAY 16 GM NS SCH (20:56)
[2022-02-10] VITALS (35 sets, daily range): BP systolic 125–155
[2022-02-10] MEDS: methylPREDNISolone SOD SUCC/PF 62.5 MG/ML VIAL IVP SCH ×4 (00:48→18:20)
[2022-02-10] MEDS: ALBUTEROL SULFATE 0.083% 2.5 MG/3 ML VIAL.NEB INH SCH ×4 (01:41→19:25)
[2022-02-10] MEDS: LORazepam 2 MG/ML VIAL IVP PRN ×2 (04:28→08:58)
[2022-02-10] MEDS: INSULIN REGULAR, HUMAN 100 UNITS/ML, 10 ML VIAL (humuLIN R) SUBCUT SCH ×4 (06:00→18:25)
[2022-02-10] MEDS: 0.45% NACL 1,000 ML IV SCH ×2 (06:23→18:20)
[2022-02-10 06:55] LABS: BASOPHILS % (AUTO) 0.1 % (0.0-2.0); HEMATOCRIT 24.3 % (36-54); LYMPHOCYTES # (AUTO) 0.7 K/uL (1.0-5.5); LYMPHOCYTES % (AUTO) 16.3 % (20.5-51.5); MEAN CORPUSCULAR HEMOGLOBIN 30 pg (27-31); MEAN CORPUSCULAR HGB CONC 33 % (32-36); MEAN CORPUSCULAR VOLUME 92 fL (79.0-98.0); MONOCYTES # (AUTO) 0.3 K/uL (0.0-1.0); MONOCYTES % (AUTO) 6.9 % (1.7-9.3); NEUTROPHILS # (AUTO) 3.4 K/uL (1.8-7.7); NEUTROPHILS % (AUTO) 76.7 % (40.0-70.0); PLATELET COUNT (AUTO) 155 K/uL (130-430); RED BLOOD CELL COUNT(AUTO) 2.64 MIL/uL (4.2-6.2); RED CELL DISTRIBUTION WIDTH 16.1 % (9.0-15.0); WHITE BLOOD COUNT (AUTO) 4.4 K/uL (4.8-10.8)
[2022-02-10 08:07] LABS: ALBUMIN 1.2 g/dL (3.4-4.8); CALCIUM 7.6 mg/dL (8.4-11.0); CREATININE 2.57 mg/dL (0.55-1.30); POTASSIUM 3.3 mmol/L (3.5-5.1); TOTAL BILIRUBIN 0.5 mg/dL (0.0-1.0)
[2022-02-10] MEDS: CARVEDILOL 6.25 MG TABLET (COREG) GT SCH ×2 (08:13→21:15)
[2022-02-10] MEDS: FERROUS SULFATE 300 MG/5 ML UDC GT SCH (08:14)
[2022-02-10] MEDS: AZITHROMYCIN 250 MG TABLET PO SCH (08:14)
[2022-02-10] MEDS: FAMOTIDINE 20 MG TABLET GT SCH (08:14)
[2022-02-10] MEDS: FUROSEMIDE 20 MG/2 ML VIAL IVP SCH (08:15)
[2022-02-10] MEDS: CEFEPIME 2 GM in D5W 100 ML IV SCH ×2 (10:59→22:33)
--- NOTE | 2022-02-10 14:35 | NUR ---
Patient Transported to OR for Schedule Surgical Procedure. Patient tolerated transfer without incident. Continue to monitor.
--- NOTE | 2022-02-10 15:30 | NUR ---
Patient returned directly to room from OR S/P surgical procedure. Patient tolerated transport without incident. Continue to monitor.
[2022-02-10] MEDS ORDERED: NS IRRIG SOLN 5000 ML IR ONE (15:44)
[2022-02-10] MEDS ORDERED: NS 1000 ML IV.SOLN IV ONE (15:44)
[2022-02-10] MEDS ORDERED: SEVOFLURANE 15 MIN GAS INH ONE (15:44)
[2022-02-10] MEDS ORDERED: MIDAZOLAM HCL 5 MG/ML VIAL (VERSED) IV ONE (15:44)
[2022-02-10] MEDS ORDERED: fentaNYL CITRATE/PF 100 MCG/2 ML AMP ONE (15:44)
[2022-02-10] MEDS ORDERED: LIDOCAINE/EPI 1% 1:100000 20 ML VIAL INJ ONE (15:44)
[2022-02-10] MEDS ORDERED: ROCURONIUM BROMIDE 10 MG/ML (ZEMURON) ONE (15:44)
--- NOTE | 2022-02-10 19:15 | NUR ---
Received bedside report from Juan Diego, patient is A&O X 1, skin is warm dry and intact, banks cath clean and dry, left side paralysis, left arm skin tear, peeled and peaked, patient trached #8 Patsy, AC 16, 450, 50%, 5. 0.45 NS running at 75 ml/hr, GT feeding Glucerna 1.5 running at 50ml/hr. bed is at the lowest level, brakes are locked, call light is within reach, appropriate side rails up.
[2022-02-10] MEDS: FLUTICASONE PROPIONATE 50 mCg/SPRAY 16 GM NS SCH (21:16)
[2022-02-10] MEDS: ATORVASTATIN 20 MG TABLET GT SCH (21:16)
[2022-02-10] MEDS: INSULIN GLARGINE 100 UNITS/ML 10 ML VIAL SUBCUT SCH (21:19)
--- NOTE | 2022-02-10 23:00 | NUR ---
Patient FiO2 reduced to 40% by RT.
[2022-02-11] VITALS (31 sets, daily range): BP systolic 121–164
[2022-02-11] MEDS: methylPREDNISolone SOD SUCC/PF 62.5 MG/ML VIAL IVP SCH ×5 (00:27→23:21)
[2022-02-11] MEDS: INSULIN REGULAR, HUMAN 100 UNITS/ML, 10 ML VIAL (humuLIN R) SUBCUT SCH ×5 (00:28→23:23)
[2022-02-11] MEDS: ALBUTEROL SULFATE 0.083% 2.5 MG/3 ML VIAL.NEB INH SCH ×4 (01:12→19:32)
--- NOTE | 2022-02-11 05:20 | NUR ---
Patient FiO2 reduced to 30% by RT
--- NOTE | 2022-02-11 07:21 | NUR ---
Gave bedside report to [facility], bed at the lowest level, breaks are locked, appropriate side rails up, call light within reach, oxygen and suction working, informed [facility] patient refused me to look at this wound, there is also a consult in for case management for transfer to [facility] as requested by the . Addendum: 02/11/22 at 0724 by Keli Tapia RN Wrong Patient
--- NOTE | 2022-02-11 07:24 | NUR ---
Gave bedside report to Sharri, patient is A&O X 1, patient bangs his hand on bed so we wrapped it up to prevent damage. Brakes are locked, bed at the lowest level, appropriate side rails up, Vent is AC 16, 450, 30%, 5.
[2022-02-11] MEDS: 0.45% NACL 1,000 ML IV SCH ×2 (07:44→20:51)
[2022-02-11 07:47] LABS: BASOPHILS % (AUTO) 0.4 % (0.0-2.0); EOSINOPHILS % (AUTO) 0.1 % (0.0-4.0); HEMATOCRIT 25.6 % (36-54); HEMOGLOBIN 8.5 g/dL (14.0-18.0); LYMPHOCYTES # (AUTO) 0.5 K/uL (1.0-5.5); LYMPHOCYTES % (AUTO) 9.7 % (20.5-51.5); MEAN CORPUSCULAR HEMOGLOBIN 30 pg (27-31); MEAN CORPUSCULAR HGB CONC 33 % (32-36); MEAN CORPUSCULAR VOLUME 91 fL (79.0-98.0); MONOCYTES # (AUTO) 0.3 K/uL (0.0-1.0); MONOCYTES % (AUTO) 6.2 % (1.7-9.3); NEUTROPHILS # (AUTO) 4.3 K/uL (1.8-7.7); NEUTROPHILS % (AUTO) 83.6 % (40.0-70.0); PLATELET COUNT (AUTO) 155 K/uL (130-430); RED BLOOD CELL COUNT(AUTO) 2.81 MIL/uL (4.2-6.2); WHITE BLOOD COUNT (AUTO) 5.1 K/uL (4.8-10.8)
[2022-02-11 07:57] LABS: ALBUMIN 1.1 g/dL (3.4-4.8); CREATININE 2.39 mg/dL (0.55-1.30); POTASSIUM 3.3 mmol/L (3.5-5.1); TOTAL BILIRUBIN 0.6 mg/dL (0.0-1.0)
--- NOTE | 2022-02-11 07:59 | NUR ---
0738 F[address] TO .[address] ACE. PT AT FROM 90-100% WILL CONT TO MONITOR. Addendum: 02/11/22 at 0801 by Dorcas Montoya RT Amended: Links added.
[2022-02-11] MEDS: AZITHROMYCIN 250 MG TABLET PO SCH (08:40)
[2022-02-11] MEDS: FAMOTIDINE 20 MG TABLET GT SCH (08:40)
[2022-02-11] MEDS: FERROUS SULFATE 300 MG/5 ML UDC GT SCH (08:40)
[2022-02-11] MEDS: FUROSEMIDE 20 MG/2 ML VIAL IVP SCH (08:41)
[2022-02-11] MEDS: CARVEDILOL 6.25 MG TABLET (COREG) GT SCH ×2 (08:41→20:34)
[2022-02-11] MEDS: LORazepam 2 MG/ML VIAL IVP PRN ×2 (09:57→14:08)
--- NOTE | 2022-02-11 10:35 | NUR ---
RN NOTES DR. BARROSO CALLED FOR PATIENT CONDITION UPDATE.
[2022-02-11] MEDS: PIPERACILLIN/TAZO 2.25G/DEX-IS 50 ML IV SCH ×3 (11:55→23:20)
[2022-02-11] MEDS: ACETAMINOPHEN 650 MG/20.3 ML UDC GT PRN (11:55)
[2022-02-11 13:51] LABS: HEMATOCRIT 25.7 % (36-54); HEMOGLOBIN 8.6 g/dL (14.0-18.0)
[2022-02-11 14:07] LABS: INR 1.2 (0.80-1.20); PROTHROMBIN TIME 12.4 SECS (9.5-12.5)
--- NOTE | 2022-02-11 14:13 | NUR ---
1410 per rn thoracic surgeon called to schedule surgery, pt still agitated, tx given, volumes still in the low 100-200tv. will cont to monitor. Addendum: 02/11/22 at 1416 by Dorcas Montoya RT Amended: Links added.
--- NOTE | 2022-02-11 14:24 | NUR ---
Nutrition F/U Admitting Diagnosis PNA, CHF Reviewed Pertinent Medical/Surgical Hx Medical Record RN Medical History Comment: Per EMR review, PMH includes HLD, HTN, DM, chronic respiratory failure, CVA, encephalopathy, previous AK, CHF, s/p trach and PEG. SARS-CoV-2 Ag (Rapid) Negative 02/06. Subjective Information: RD rounded to ICU and spoke w/ pt's primary RN. She reported that pt has been tolerating TF well at goal rate w/ 5 ml GRV today. She stated that pt is positive for ESBL in urine and has recent orders for a bleeding scan -- LBM last night. RD visited pt at bedside -- present. TF was infusing per physician order. Bedscale wt taken: 174.8# -- note possible 6.8# wt gain, may be d/t linens/bedding. Per EMR review, TF Rate: 50 ml/hr 02/11; GRV: 10 ml 02/11; TF Intakes: 300 ml 02/11; abd is soft and non-distended w/ active bowel sounds; pt is intubated on vent; confused/disoriented; L arm w/ 3+ pitting edema and R arm w/ 2+ pitting edema; pt is s/p exploration of neck 11/23 bleeding and found w/ collapsed lung 02/10. Current TF prescription is adequate/appropriate to meet nutritional needs. Current Diet Order/Nutrition Support: Glucerna 1.5 at 50 ml/hr, Nolberto BID, Free Water Flush: 100 ML Q6H (per MD) via GT x2 days Patient/Significant Other Unable To Verbalize Education Provided Not Indicated Pertinent Medications: lantus, lasix, solu-medrol, pepcid, lipitor, NS IV at 75 ml/hr, SSI, ferrous sulfate Pertinent Labs: BUN 107 H, CRE 2.39 H, eGFR 29 L, BG 294 H, POC BG 248 H, ALB 1.1 L, H/H 8.5 L/25.6 L, K 3.3 L Height (Feet) 5 feet Height (Inches) 8.00 inches Weight (Pounds) 168 pounds no changes since 02/06 Patient Weight 76.204 kg Body Mass Index 25.54 kg/m2 %IBW 109 [place]/Adjusted Body Weight 154#/70 kg Recent Weight Change unable to verify Weight Status Appropriate Food Allergies unable to verify Usual Diet At Home Glucerna 1.5 @ 50 mL/hr (*NEW) Estimated Energy Expenditure (kcals/day) 2070 ([id number], Ve: 18.1, Tmax: 37.6'C) (*ONGOING) Estimated Protein Required (g/day) 91-114 (1.2-1.5 g/kg CBW d/t respiratory failure, CHF) (*ONGOING) Estimated Fluid Required (l/day) Per MD d/t CHF Problem/Etiology/Signs/Symptoms Increased nutritional needs R/T physiological demands AEB estimated nutritional requirements for acute critical illness and wound healing. (*ONGOING) Expected Outcomes/Goals Monitor tube feeding tolerance and intakes w/ goal of pt meeting more than 90% of estimated nutritional needs, labs trending WNL, normal GI function, skin integrity/wt maintenance. Dietitian Recommendations * Glucerna 1.5 at 50 ml/hr, Nolberto BID, Free Water Flush: 100 ML Q6H (per MD) via GT Provides (w/ Nolberto): 1960 kcal/day, 104 g protein/day, and 911 ml free water/day Meets: 95% of estimated caloric needs, 91% of upper end of estimated protein needs Follow Up High Risk: F/U in 2-3 days
--- NOTE | 2022-02-11 14:37 | NUR ---
Dietitian Recommendations * Glucerna 1.5 at 50 ml/hr, Nolberto BID, Free Water Flush: 100 ML Q6H (per MD) via GT Provides (w/ Nolberto): 1960 kcal/day, 104 g protein/day, and 911 ml free water/day Meets: 95% of estimated caloric needs, 91% of upper end of estimated protein needs LP, RD Please refer Nutrition F/U for details.
--- NOTE | 2022-02-11 14:40 | NUR ---
MD CONSULT DR. BOX CALLED FOR CONSULT. REASON FOR CONSULT: EVALUATE BLEEDING TRACHE SITE. MD WILL COME IN TO SEE PATIENT.
[2022-02-11] MEDS ORDERED: NALOXONE HCL 0.4 MG/ML AMP (NARCAN) IVP PRN (14:45)
[2022-02-11] MEDS ORDERED: MORPHINE 2 MG/ML INJ. SYRINGE IVP PRN (14:45)
--- NOTE | 2022-02-11 14:50 | NUR ---
CONSUL DR. CARCAMO EXCHNIDHIR CALLED. REASON FOR CONSULT: BLEEDING TRACHE SITE
--- NOTE | 2022-02-11 16:16 | NUR ---
1555 DR BOX CAME IN, CLEANED AND INSPECTED TRACH. ADDED PACKING AND UPON CHECKING CUFF , HE STATED, THE CUFF IS BUSTED AND TO HAVE IT CHANGED. ADDED 4CC AIR TO CUFF TO ACHIEVE VOLUMES OF 468 FROM A PREVIOUS VOLUME OF 280. DR. BOX CONSULTED WITH DR BARROSO. RN AWARE, WILL CONTINUE TO MONIOTR PT AT THIS TIME. Addendum: 02/11/22 at 1623 by Dorcas Montoya RT Amended: Links added.
[2022-02-11] MEDS ORDERED: POTASSIUM CHLORIDE 40 MEQ in NS 250 ML IV ONE (17:00)
[2022-02-11] MEDS ORDERED: POTASSIUM CHLORIDE 20 MEQ/PKT PACKET PO ONE (17:00)
--- NOTE | 2022-02-11 17:00 | NUR ---
MD BARROSO AND CLINT MADE ROUNDS, UPDATED PATIENT CURRENT CONDITION. NEW ORDER RECEIVED, NOTED AND CARRIED OUT.
[2022-02-11] MEDS: POTASSIUM CHLORIDE 20 mEq in 100 mL (PREMIX) 100 ML x 2 doses IV SCH ×2 (17:07→19:00)
--- NOTE | 2022-02-11 18:36 | NUR ---
GI BLEEDING SCAN IN PROGRESS AT THE BEDSIDE.
--- NOTE | 2022-02-11 19:27 | NUR ---
Opening Notes: Received report from [facility], patient is receiving intestinal scan.
[2022-02-11] MEDS: ATORVASTATIN 20 MG TABLET GT SCH (20:33)
[2022-02-11] MEDS: INSULIN GLARGINE 100 UNITS/ML 10 ML VIAL SUBCUT SCH (20:35)
[2022-02-11] MEDS: FLUTICASONE PROPIONATE 50 mCg/SPRAY 16 GM NS SCH (20:36)
--- NOTE | 2022-02-11 20:52 | NUR ---
Patient FiO2 reduced to 40% by RT.
[2022-02-12] VITALS (23 sets, daily range): BP systolic 137–176
[2022-02-12] MEDS: ALBUTEROL SULFATE 0.083% 2.5 MG/3 ML VIAL.NEB INH SCH ×3 (00:48→13:16)
[2022-02-12] MEDS: PIPERACILLIN/TAZO 2.25G/DEX-IS 50 ML IV SCH ×2 (05:29→11:33)
[2022-02-12] MEDS: methylPREDNISolone SOD SUCC/PF 62.5 MG/ML VIAL IVP SCH (05:30)
[2022-02-12] MEDS: INSULIN REGULAR, HUMAN 100 UNITS/ML, 10 ML VIAL (humuLIN R) SUBCUT SCH ×2 (05:32→12:09)
[2022-02-12 07:01] LABS: BASOPHILS % (AUTO) 0.2 % (0.0-2.0); HEMATOCRIT 24.7 % (36-54); HEMOGLOBIN 8.3 g/dL (14.0-18.0); LYMPHOCYTES # (AUTO) 0.7 K/uL (1.0-5.5); LYMPHOCYTES % (AUTO) 12.6 % (20.5-51.5); MEAN CORPUSCULAR HEMOGLOBIN 31 pg (27-31); MEAN CORPUSCULAR HGB CONC 34 % (32-36); MEAN CORPUSCULAR VOLUME 91 fL (79.0-98.0); MONOCYTES # (AUTO) 0.2 K/uL (0.0-1.0); MONOCYTES % (AUTO) 3.7 % (1.7-9.3); NEUTROPHILS # (AUTO) 4.8 K/uL (1.8-7.7); NEUTROPHILS % (AUTO) 83.5 % (40.0-70.0); PLATELET COUNT (AUTO) 155 K/uL (130-430); RED BLOOD CELL COUNT(AUTO) 2.73 MIL/uL (4.2-6.2); RED CELL DISTRIBUTION WIDTH 16.3 % (9.0-15.0); WHITE BLOOD COUNT (AUTO) 5.7 K/uL (4.8-10.8)
--- NOTE | 2022-02-12 07:15 | NUR ---
RECEIVED PATIENT IN BED #3, AAOX2, NAD, VSS, REMAINS TRACHED ON VENTILATOR, PATIENT SHOWS SOME SUBCUTANEOUS EMPYEMA, FACE AND CHEST SWOLLEN. PT TO BE FURTHER ASSESSED BY MULTIPLE DISCIPLINARY MDS FOR FURTHER DISPOSITION WITH PLAN OF CARE.
--- NOTE | 2022-02-12 07:23 | NUR ---
Closing Notes: Gave bedside report to Ronald Rodriguez running at 75, trach 16,450,40%,5, bed at the lowest level, appropriate side rails up, brakes are locked, call light within reach.
[2022-02-12 07:41] LABS: ALBUMIN 1.1 g/dL (3.4-4.8); CREATININE 2.45 mg/dL (0.55-1.30); POTASSIUM 3.7 mmol/L (3.5-5.1); TOTAL BILIRUBIN 0.6 mg/dL (0.0-1.0)
[2022-02-12 07:53] LABS: CALCIUM 6.9 mg/dL (8.4-11.0)
--- NOTE | 2022-02-12 08:30 | NUR ---
DR. ACE AT BEDSIDE FOR ASSESSMMENT
[2022-02-12] MEDS: CARVEDILOL 6.25 MG TABLET (COREG) GT SCH (09:18)
[2022-02-12] MEDS: FERROUS SULFATE 300 MG/5 ML UDC GT SCH (09:19)
[2022-02-12] MEDS: FUROSEMIDE 20 MG/2 ML VIAL IVP SCH (09:19)
[2022-02-12] MEDS: FAMOTIDINE 20 MG TABLET GT SCH (09:19)
--- NOTE | 2022-02-12 09:35 | NUR ---
S/W DR. WEINSTEIN BASED ON THE CXR RESULT. PT REMAINS COMFORTABLE, RESPONDS TO YES AND NO QUESTIONS.
[2022-02-12] MEDS: 0.45% NACL 1,000 ML IV SCH (10:47)
--- NOTE | 2022-02-12 11:00 | NUR ---
PAGEKelly BARROSO AND DR. BOX IN REGARDS TO RESULTS OF SUBCUTANEOUS EMPHYSEMA, NO PNEUMOTHORAX IN CXR, BOTH MDs AWARE. PER DR. BOX, DAILY CXR TO MONITOR PNEUMO, AND OBSERVE. Addendum: 02/12/22 at 1144 by [facility] water softener servicer PAGED AND DISCUSS WITH.
--- NOTE | 2022-02-12 15:10 | NUR ---
NOTICED PATIENT DECREASED FROM TACHYCARDIA TO BRADYCARDIA ON MONITOR, PHYSICALLY CHECKED PATIENT AND NOTICED HE LOOKED ALTERED FROM BASELINE. CHECKED PULSES, NONE. CPR INITIATED WITH STAFF.
[2022-02-12] MEDS ORDERED: NOREPINEPHRINE BITARTRATE 4 MG in D5W 246 ML IV PRN (15:45)
--- NOTE | 2022-02-12 15:52 | NUR ---
1513 IRMA HUBBARD CALLED. CPR IN PROGRESS. PATIENT OFF THE VENT AND BAGGED WITH AMBU BAG VIA ETT. 1528 ROSC. PATIENT BACK TO ON VENT WITH PREVIOUS SETTINGS, AV16, VT 450, PEEP +5, FIO2 100%. 1539 IRMA HUBBARD CALLED. PERFORMED CPR AND BAGGED PATIENT. 1552 PATIENT . Addendum: 02/12/22 at 1637 by Francine dAamson RT 1513 IRMA HUBBARD CALLED. CPR IN PROGRESS. PATIENT OFF THE VENT AND BAGGED WITH AMBU BAG VIA TRACHEOSTOMY. 1528 ROSC. PATIENT BACK TO ON VENT WITH PREVIOUS SETTINGS, AV16, VT 450, PEEP +5, FIO2 100%. 1539 IRMA HUBBARD CALLED. PERFORMED CPR AND BAGGED PATIENT. 1552 PATIENT .
--- NOTE | 2022-02-12 17:20 | NUR ---
SPOKE WITH DR. MARTINEZ, DR. WEINSTEIN, DR. ACE IN REGARDS TO PATIENT STATUS CHANGE AND INFORMED OF RESULT. TWO ADDITIONAL CALLS TO THE GENERAL AND PLASTIC SURGEONS TO NOTIFY RESULTS.
[2022-02-13] MEDS ORDERED: methylPREDNISolone SOD SUCC/PF 62.5 MG/ML VIAL IVP SCH (09:00)
== END 2022-02-12 15:53 | DRG 710 ==
LOC: SED 22:56 → STU 02-06 06:24 → SIC 02-08 15:44
PROVIDERS: ADMIT Family Medicine; ATTEND Family Medicine
PROC: 5A1955Z Respiratory Ventilation, Greater than 96 Consecutive Hours (ICD-10-PCS; 2022-02-08)
PROC: 30233N1 Transfusion of Nonautologous Red Blood Cells into Peripheral Vein, Percutaneous Approach (ICD-10-PCS; 2022-02-09)
PROC: 0B9B8ZZ Drainage of Left Lower Lobe Bronchus, Via Natural or Artificial Opening Endoscopic (ICD-10-PCS; 2022-02-10)
PROC: 0B948ZZ Drainage of Right Upper Lobe Bronchus, Via Natural or Artificial Opening Endoscopic (ICD-10-PCS; 2022-02-10)
PROC: 0B988ZZ Drainage of Left Upper Lobe Bronchus, Via Natural or Artificial Opening Endoscopic (ICD-10-PCS; 2022-02-10)
PROC: 0B968ZZ Drainage of Right Lower Lobe Bronchus, Via Natural or Artificial Opening Endoscopic (ICD-10-PCS; 2022-02-10)
PROC: 0BJ10ZZ Inspection of Trachea, Open Approach (ICD-10-PCS; principal; 2022-02-10 14:00)
PROC: 5A12012 Performance of Cardiac Output, Single, Manual (ICD-10-PCS; 2022-02-12)
PROC: 06HY33Z Insertion of Infusion Device into Lower Vein, Percutaneous Approach (ICD-10-PCS; 2022-02-12)
PROC: B54BZZA Ultrasonography of Right Lower Extremity Veins, Guidance (ICD-10-PCS; 2022-02-12)
DX: A41.9 Sepsis, unspecified organism (principal); J96.20 Acute and chronic respiratory failure, unspecified whether with hypoxia or hypercapnia; J15.1 Pneumonia due to Pseudomonas; E43 Unspecified severe protein-calorie malnutrition; J15.5 Pneumonia due to Escherichia coli; J98.2 Interstitial emphysema; T17.898A Other foreign object in other parts of respiratory tract causing other injury, initial encounter; J15.6 Pneumonia due to other Gram-negative bacteria; N17.9 Acute kidney failure, unspecified; R04.89 Hemorrhage from other sites in respiratory passages; I69.354 Hemiplegia and hemiparesis following cerebral infarction affecting left non-dominant side; Z99.11 Dependence on respirator [ventilator] status; Z16.12 Extended spectrum beta lactamase (ESBL) resistance; N39.0 Urinary tract infection, site not specified; I50.9 Heart failure, unspecified; I11.0 Hypertensive heart disease with heart failure; E11.9 Type 2 diabetes mellitus without complications; D64.9 Anemia, unspecified; M32.9 Systemic lupus erythematosus, unspecified; E86.0 Dehydration; E78.5 Hyperlipidemia, unspecified; I25.5 Ischemic cardiomyopathy; R00.1 Bradycardia, unspecified; Z20.822 Contact with and (suspected) exposure to COVID-19; Y95 Nosocomial condition; X58.XXXA Exposure to other specified factors, initial encounter; Y92.238 Other place in hospital as the place of occurrence of the external cause; Y93.89 Activity, other specified; Y99.8 Other external cause status; I25.2 Old myocardial infarction; I69.320 Aphasia following cerebral infarction; Z79.899 Other long term (current) drug therapy; Z74.01 Bed confinement status; Z87.01 Personal history of pneumonia (recurrent); Z93.1 Gastrostomy status; Z79.01 Long term (current) use of anticoagulants; Z68.25 Body mass index [BMI] 25.0-25.9, adult
CPT/HCPCS: 36415; 36600; 71045; 78278-TC; 80048; 80053; 81000; 82272; 82803-TC; 82962; 83735; 83880; 84484; 85018; 85025; 85379; 85384; 85610-TC; 85730-TC; 86886; 86900; 86901; 86920; 87040; 87070-TC; 87081; 87086; 87205-TC; 92950; 93005; 93971; 94002; 94003; 94640; 94760; 96365; 96375; 99291; G0378; J0360; J0456; J0692; J1030; J1644; J1815; J1940; J2060; J2248; J2250; J2543; J2930; J3010; J7030; J7050; J7060; J7612; J7613; P9021; Q0144